=== PATIENT | male | born 1960 | race Caucasian/White ===

== ENCOUNTER → 2016-06-27 | Outpatient (CLI) | payer BC ==
[~2016-06-27] MED LIST: AMPH30TA4; DULO30CA23 PO; FLAX100017 PO; FLUT16SP12 NS; FOLI0.8T23 PO; LEVO175T7 PO
--- NOTE | 2016-06-27 17:48 | DI ---
Indication: ITS.REASON: E04.1 LEFT THYROID NODULE PROCEDURE: US THYROID: Encounter: Initial Comparison: None Findings: The right lobe of the thyroid measures 4.4 x 1.5 x 1.1 cm. The left lobe measures 4.0 x 1.5 x 10.9 cm. The isthmus is not thickened measuring 3 mm in maximal diameter. There is no definite dominant nodule of the thyroid. The palpable lump appears to represent a nonpathologically enlarged lymph node. Impression: No suspicious thyroid abnormality. Probably incidental nonpathologically enlarged lymph node which accounts for the palpable abnormality. .
== END ==
LOC: IMA 15:38
PROVIDERS: ATTEND Family Medicine
DX: R93.8 Abnormal findings on diagnostic imaging of other specified body structures (principal); E04.1 Nontoxic single thyroid nodule